=== PATIENT | male | born 1960 | race African-American/Black ===

== ENCOUNTER 2016-09-17 10:18 | Inpatient (IN) ==
[2016-09-18] MEDS ORDERED: MYLICON PO PRN (06:58)
[2016-09-18] MEDS ORDERED: ZOFRAN IV PRN (08:07)
[2016-09-18] MEDS ORDERED: COMPAZINE IV PRN (08:07)
[2016-09-18] MEDS ORDERED: MIRALAX PO PRN (08:08)
[2016-09-18] MEDS ORDERED: TYLENOL PO PRN (08:24)
[2016-09-18 09:06] LABS: AGAP 12; BUN 20 mg/dL (8-22); CALCIUM 8.9 mg/dL (8.8-10.2); CHLORIDE 99 mmol/L (98-107); COSMO 278; MAGNESIUM 1.7 mg/dL (1.5-2.7); POTASSIUM 3.9 mmol/L (3.5-5.1); SODIUM 136 mmol/L (136-145); TCO2 25 mmol/L (25-35)
[2016-09-18] MEDS ORDERED: PATIENT'S OWN MED INJ ONE (09:45)
[2016-09-18] MEDS ORDERED: IN NS INJ ONE (10:00)
--- NOTE | 2016-09-18 10:15 | PROGRESS NOTE ---
DATE: 09/18/2016 SUBJECTIVE: Mr. Kim reports that overall he is stable today. He continues to have a right- sided frontal headache. This been present for several weeks now. LABS: Currently pending. OBJECTIVE: Vital Signs: Temperature 98.6 degrees, heart rate 86, respirations 18, blood pressure 153/72, O2 saturations 95% on room air. CV: On physical exam, S1, S2 heard. No murmurs, gallops, rubs appreciated. Respiratory: Chest is clear to auscultation bilaterally. Normal respiratory effort. Gastrointestinal: Abdomen is soft. He has some mild right upper quadrant tenderness that is overall stable. Positive bowel sounds. Extremities: Patient has some trace bilateral extremity edema. Neurologic: Patient is alert and oriented. He is reporting that right-sided headache as well, some decrease in vision and auditory acuity on the right side. He reports that these symptoms are not new. ASSESSMENT AND PLAN: 1. Acute promyelocytic leukemia. Patient is admitted at this time in order to receive chemotherapy. He is due for his next round of arsenic later today. He will be monitored closely for toxicities. 2. Right-sided headache. The patient has previously had a brain MRI, 09/10/2016 , which was negative for any masses or any acute findings. The patient reports headaches overall stable. We will continue to provide pain medication as needed. Patient currently has Tylenol. 3. Nausea. Patient reports that he has nausea specifically after he receives treatment. He has been using oral antiemetics which have been effective. We will go ahead and add in Zofran and Compazine intravenous as needed. 4. Abdominal gas with some constipation. Patient will have simethicone to use as needed. We will also provide MiraLAX as needed. 5. Diabetes. Patient needs to continue home medications. 6. Hypertension. Patient will need to continue all home medications. Dictated by CHIVO López for Nicole Nicolas MD cc: MD Jesse Lee MD I have seen and examined the patient and agree with the above A/P. Nicole Nicolas MD. [facility]
[2016-09-18] MEDS ORDERED: NOVOLOG MIX 70/30 SUBQ SCH (11:00)
[2016-09-18] MEDS: NOVOLOG MIX 70/30 SUBQ SCH ×2 (11:38→18:38)
[2016-09-18] MEDS ORDERED: INSULIN PEN NEEDLES ONE (13:23)
[2016-09-19 07:20] LABS: AGAP 15; BUN 22 mg/dL (8-22); CALCIUM 8.7 mg/dL (8.8-10.2); CHLORIDE 100 mmol/L (98-107); COSMO 279; MAGNESIUM 1.9 mg/dL (1.5-2.7); POTASSIUM 3.6 mmol/L (3.5-5.1); SODIUM 138 mmol/L (136-145); TCO2 23 mmol/L (25-35)
[2016-09-19] MEDS ORDERED: IMODIUM PO ONE (07:28)
[2016-09-19] MEDS ORDERED: IMODIUM PO PRN (07:29)
--- NOTE | 2016-09-19 08:00 | PROGRESS NOTE ---
DATE: 09/19/2016 CHIEF COMPLAINT: Diarrhea. HISTORY OF PRESENT ILLNESS: Mr. Kim developed diarrhea overnight with urgency and frequency. He denies any bleeding, fevers, or chills. He had some abdominal cramping that has stopped now. He would still like to go home today when his chemotherapy completes if possible. PHYSICAL EXAMINATION: Vital Signs: Temperature is 98.5 degrees, pulse 92, blood pressure 168/61, O2 saturation 100% on room air, respiratory rate 18. General. He is a well- developed, well- nourished, man in no acute distress. HEENT: Eyes, sclerae are anicteric. Cardiovascular: Regular rate and rhythm. Normal S1, S2. No murmurs, rubs, or gallops. GI: Abdomen is soft, nontender, nondistended with normoactive bowel sounds. Extremities: No clubbing, cyanosis, or edema. Neurologic: He is alert orient x3. No focal deficits. LABORATORY DATA: Creatinine is 1.3. Magnesium is 1.9. ASSESSMENT AND PLAN: 1. Acute promyelocytic leukemia: He will proceed with his last cycle of arsenic today and then will be discharged home for outpatient followup. He will call the clinic if he has questions or concerns in the interim. 2. Diarrhea, new problem: I will start him on some Imodium at this time. Likely treatment induced. Reassess at return visit. cc: MD Jesse Lee MD I have seen and examined the patient and agree with the above A/P. Nicole FUENTES
[2016-09-19] MEDS ORDERED: PATIENT'S OWN MED INJ ONE (09:30)
[2016-09-19] MEDS ORDERED: IN NS INJ ONE (10:00)
[2016-09-19 13:24] VITALS: BP 143/64
== END 2016-09-19 13:54 | disposition home or self-care (01) ==
LOC: DIRADM 10:18 → 3N 17:42
PROVIDERS: ADMIT Internal Medicine Hematology & Oncology; ATTEND Internal Medicine Hematology & Oncology

== ENCOUNTER 2016-10-15 10:38 | Inpatient (IN) ==
[2016-10-15] MEDS ORDERED: ATIVAN IV ONE (11:15)
[2016-10-15] MEDS ORDERED: NON-FORMULARY MED 1 EACH in NS 250 ML IV ONE (11:30)
[2016-10-15] MEDS ORDERED: ZOFRAN 16 MG in NS 50 ML IV ONE (11:30)
[2016-10-15] MEDS ORDERED: PEPCID ONE (11:31)
[2016-10-15] MEDS ORDERED: SODIUM CHLORIDE 0.9% 10 ML ONE ×2 (11:32)
[2016-10-15 11:40] LABS: AGAP 10; ALBUMIN 2.9 g/dL (3.5-5.0); ALKALINE PHOSPHATASE 236 U/L (32-122); BUN 19 mg/dL (8-22); CALCIUM 7.7 mg/dL (8.8-10.2); CHLORIDE 104 mmol/L (98-107); COSMO 288; GOT 31 U/L (10-34); GPT 36 U/L (10-44); POTASSIUM 3.4 mmol/L (3.5-5.1); SODIUM 140 mmol/L (136-145); TCO2 26 mmol/L (25-35); TOTAL BILIRUBIN 0.66 mg/dL (0.20-1.00); TOTAL PROTEIN 6.1 g/dL (6.3-8.3)
[2016-10-15 11:43] LABS: BASO% 0.1 % (0.0-0.8); EOS# 0.13 X1000 (0.0-0.7); EOS% 1.8 % (0.0-10.0); HEMATOCRIT 28.8 % (42.0-52.0); HEMOGLOBIN 9.8 g/dL (14.0-18.0); IMM GRAN# 0.18 X1000 (0.0-0.04); IMM GRAN% 2.5 % (0.0-0.5); LYMPH# 0.15 X1000 (1.2-3.4); LYMPH% 2.1 % (20.5-51.1); MANUAL DIFF NEEDED? YES; MCH 30.4 PG (27-31); MCV 89.4 FL (81-99); MONO# 0.22 X1000 (0.11-0.59); NEUT% 90.5 % (42.2-75.2); PLT 129 X1000 (130-400); RBC 3.22 XMIL (4.7-6.1)
[2016-10-15 12:20] LABS: BANDS 2 % (0-1); LYMPHS 4 % (21-51)
[2016-10-15] MEDS ORDERED: COLACE PO PRN (16:22)
[2016-10-15] MEDS ORDERED: ATIVAN PO SCH (18:30)
[2016-10-15] MEDS ORDERED: PHENERGAN SCH (18:30)
[2016-10-15] MEDS: ATIVAN PO SCH (18:38)
[2016-10-15 21:00] LABS: URINE SOURCE CLEAN CATCH
[2016-10-15 21:04] LABS: BILIRUBIN URINE SMALL (NEGATIVE); BLOOD URINE MODERATE (NEGATIVE); COLOR YELLOW; GLUCOSE URINE TRACE mg/dL (NEGATIVE); LEUKOCYTES URINE NEGATIVE (NEGATIVE); NITRITE URINE NEGATIVE (NEGATIVE); PROTEIN URINE 600 mg/dL (NEGATIVE); TURBIDITY URINE CLEAR (CLEAR); UROBILINOGEN URINE NORMAL (NORMAL)
[2016-10-15 21:06] LABS: URINE MICRO REVIEW NEEDED? YES
[2016-10-15 21:19] LABS: URINE RBC <10 /HPF (<10); URINE WBC <10 /HPF (<10)
[2016-10-15 21:20] LABS: UR EPITHELIAL CELLS <10 /HPF (<10); URINE BACTERIA 2+ /HPF; URINE CASTS NONE SEEN; URINE CRYSTALS NONE SEEN; URINE CULTURE NEEDED? YES; URINE SMALL ROUND CELLS NONE SEEN
[2016-10-15 21:41] LABS: EOS# 0.07 X1000 (0.0-0.7); EOS% 0.8 % (0.0-10.0); HEMATOCRIT 26.4 % (42.0-52.0); HEMOGLOBIN 8.9 g/dL (14.0-18.0); IMM GRAN# 0.14 X1000 (0.0-0.04); IMM GRAN% 1.6 % (0.0-0.5); LYMPH# 0.17 X1000 (1.2-3.4); MANUAL DIFF NEEDED? NO; MCH 30.4 PG (27-31); MCHC 33.7 g/dL (33-37); MCV 90.1 FL (81-99); MONO# 0.23 X1000 (0.11-0.59); MONO% 2.7 % (1.7-9.3); MPV 11.1 FL (7.4-10.4); NEUT% 92.9 % (42.2-75.2); PLT 153 X1000 (130-400); RBC 2.93 XMIL (4.7-6.1)
[2016-10-15] MEDS: PRILOSEC PO SCH (22:38)
[2016-10-15] MEDS: TYLENOL PO PRN (22:38)
[2016-10-15] MEDS: PATIENT'S OWN MED PO SCH (23:43)
[2016-10-16] MEDS: PATIENT'S OWN MED TOP SCH ×2 (06:03→12:46)
[2016-10-16] MEDS: ATIVAN PO SCH ×2 (06:46→17:39)
[2016-10-16] MEDS ORDERED: INSULIN ASPART 100 UNIT SQ SCH (07:00)
[2016-10-16 07:08] LABS: EOS# 0.23 X1000 (0.0-0.7); EOS% 2.9 % (0.0-10.0); HEMATOCRIT 23.9 % (42.0-52.0); HEMOGLOBIN 7.9 g/dL (14.0-18.0); IMM GRAN# 0.09 X1000 (0.0-0.04); IMM GRAN% 1.2 % (0.0-0.5); LYMPH# 0.21 X1000 (1.2-3.4); LYMPH% 2.7 % (20.5-51.1); MANUAL DIFF NEEDED? YES; MCH 30.3 PG (27-31); MCHC 33.1 g/dL (33-37); MCV 91.6 FL (81-99); MONO# 0.39 X1000 (0.11-0.59); MPV 11.3 FL (7.4-10.4); NEUT% 88.2 % (42.2-75.2); PLT 156 X1000 (130-400); RBC 2.61 XMIL (4.7-6.1)
[2016-10-16 07:26] LABS: AGAP 14; ALBUMIN 2.6 g/dL (3.5-5.0); ALKALINE PHOSPHATASE 200 U/L (32-122); BANDS 4 % (0-1); BUN 21 mg/dL (8-22); CALCIUM 7.6 mg/dL (8.8-10.2); CHLORIDE 105 mmol/L (98-107); COSMO 288; GOT 25 U/L (10-34); GPT 30 U/L (10-44); LYMPHS 6 % (21-51); MONO 12 % (1-9); POTASSIUM 3.3 mmol/L (3.5-5.1); SODIUM 142 mmol/L (136-145); TCO2 23 mmol/L (25-35); TOTAL PROTEIN 5.8 g/dL (6.3-8.3)
[2016-10-16] MEDS: TYLENOL PO PRN ×2 (08:32→20:30)
[2016-10-16] MEDS: PRILOSEC PO SCH (08:33)
[2016-10-16] MEDS: LASIX PO SCH (08:33)
[2016-10-16] MEDS: MARINOL PO SCH (08:33)
[2016-10-16] MEDS: PATIENT'S OWN MED PO SCH ×2 (08:43→20:30)
[2016-10-16] MEDS: SODIUM CHLORIDE 0.9% INJ SCH (12:45)
[2016-10-16] MEDS: LEVAQUIN 500 MG/D5W 500 MG/100 ML IVPB IV SCH (12:45)
[2016-10-16] MEDS: PROTONIX IV SCH (12:45)
[2016-10-16] MEDS: DILAUDID IV PRN ×2 (12:45→20:30)
[2016-10-16] MEDS ORDERED: VANCOMYCIN IV PER PHARMACY MISC SCH (13:45)
[2016-10-16] MEDS ORDERED: VANCOMYCIN 2.5 GM in NS 500 ML IV ONE (15:00)
[2016-10-17] MEDS: DILAUDID IV PRN ×2 (00:56→06:15)
[2016-10-17] MEDS: PATIENT'S OWN MED TOP SCH ×2 (00:56→12:29)
[2016-10-17] MEDS: ATIVAN PO SCH ×3 (06:14→17:49)
[2016-10-17] MEDS: TYLENOL PO PRN ×2 (06:14→09:39)
[2016-10-17 06:29] LABS: MANUAL DIFF NEEDED? NO
[2016-10-17 06:46] LABS: EOS# 0.19 X1000 (0.0-0.7); EOS% 3.9 % (0.0-10.0); HEMATOCRIT 23.5 % (42.0-52.0); HEMOGLOBIN 7.6 g/dL (14.0-18.0); IMM GRAN# 0.06 X1000 (0.0-0.04); IMM GRAN% 1.2 % (0.0-0.5); LYMPH% 4.1 % (20.5-51.1); MCH 29.8 PG (27-31); MCHC 32.3 g/dL (33-37); MCV 92.2 FL (81-99); MONO# 0.36 X1000 (0.11-0.59); MONO% 7.4 % (1.7-9.3); MPV 10.9 FL (7.4-10.4); NEUT% 83.4 % (42.2-75.2); PLT 201 X1000 (130-400); RBC 2.55 XMIL (4.7-6.1)
[2016-10-17 06:49] LABS: ALBUMIN 2.6 g/dL (3.5-5.0); CALCIUM 7.8 mg/dL (8.8-10.2); POTASSIUM 3.5 mmol/L (3.5-5.1); TOTAL BILIRUBIN 1.13 mg/dL (0.20-1.00); TOTAL PROTEIN 5.7 g/dL (6.3-8.3)
[2016-10-17 08:48] LABS: MANUAL DIFF NEEDED? NO
[2016-10-17 08:49] LABS: BASO% 0.2 % (0.0-0.8); EOS# 0.14 X1000 (0.0-0.7); HEMATOCRIT 23.7 % (42.0-52.0); HEMOGLOBIN 7.8 g/dL (14.0-18.0); IMM GRAN# 0.11 X1000 (0.0-0.04); IMM GRAN% 2.4 % (0.0-0.5); LYMPH# 0.23 X1000 (1.2-3.4); MCH 30.4 PG (27-31); MCHC 32.9 g/dL (33-37); MCV 92.2 FL (81-99); MONO% 6.5 % (1.7-9.3); NEUT% 82.9 % (42.2-75.2); PLT 198 X1000 (130-400); RBC 2.57 XMIL (4.7-6.1)
[2016-10-17 09:01] LABS: ALBUMIN 2.6 g/dL (3.5-5.0); CALCIUM 7.8 mg/dL (8.8-10.2); POTASSIUM 3.5 mmol/L (3.5-5.1); TOTAL BILIRUBIN 1.11 mg/dL (0.20-1.00); TOTAL PROTEIN 5.9 g/dL (6.3-8.3)
[2016-10-17] MEDS: NS 1,000 ML IV SCH (09:23)
[2016-10-17] MEDS: LASIX PO SCH (09:23)
[2016-10-17] MEDS: LOVENOX SUBQ SCH (09:23)
[2016-10-17] MEDS: MARINOL PO SCH (09:23)
[2016-10-17] MEDS: PATIENT'S OWN MED PO SCH (09:24)
[2016-10-17] MEDS ORDERED: LASIX IV ONE (09:27)
[2016-10-17 09:35] LABS: ALLEN TEST YES; BE -0.8 mmoll (-3.0-3.0); BLOOD TYPE ARTERIAL; DRAW SITE R RADIAL; METHB 1.4 % (0.0-1.5); MODALITY CANNULA; O2(CT) 10.7 mL/dL (15.0-23.0); PCO2(98.6) 34 mmHg (35-45); PO2(98.6) 62 mmHg (60-100); SAMPLE BLOOD; SAO2 95.6 % (95.0-100.0); THB 8.2 g/dL (11.5-17.4); pH(98.6) 7.44 (7.35-7.45)
[2016-10-17] MEDS: LEVAQUIN 500 MG/D5W 500 MG/100 ML IVPB IV SCH ×2 (10:33→10:42)
[2016-10-17] MEDS: SODIUM CHLORIDE 0.9% INJ SCH (12:28)
[2016-10-17] MEDS: MAXIPIME 1 GM in NS 50 ML IV SCH (12:28)
[2016-10-17] MEDS: PROTONIX IV SCH (12:28)
[2016-10-17] MEDS ORDERED: COLACE PO PRN (13:13)
[2016-10-17] MEDS: CUBICIN 600 MG in NS 100 ML IV SCH (13:19)
[2016-10-17] MEDS: ZOFRAN IV PRN (13:24)
[2016-10-17 13:56] LABS: URINE CULTURE NEEDED? NO; URINE MICRO REVIEW NEEDED? NO; URINE SOURCE CATH
[2016-10-17 14:02] LABS: BILIRUBIN URINE NEGATIVE (NEGATIVE); BLOOD URINE SMALL (NEGATIVE); COLOR YELLOW; GLUCOSE URINE NEGATIVE (NEGATIVE); LEUKOCYTES URINE NEGATIVE (NEGATIVE); NITRITE URINE NEGATIVE (NEGATIVE); PROTEIN URINE 300 mg/dL (NEGATIVE); SP GRAVITY URINE 1.013; TURBIDITY URINE HAZY (CLEAR); UROBILINOGEN URINE NORMAL (NORMAL)
[2016-10-17 14:03] LABS: UR EPITHELIAL CELLS <10 /HPF (<10); URINE BACTERIA NEGATIVE /HPF; URINE WBC <10 /HPF (<10)
[2016-10-17 14:14] LABS: UR CREAT RANDOM 120.8 mg/dL (14-26)
[2016-10-17] MEDS ORDERED: VANCOMYCIN 2,000 MG in NS 500 ML IV SCH (15:00)
[2016-10-17] MEDS: PHENERGAN IV PRN (16:34)
[2016-10-17] MEDS: SODIUM CHLORIDE 0.9% INJ PRN (16:34)
[2016-10-17] MEDS ORDERED: COLACE PO SCH (21:00)
[2016-10-17] MEDS ORDERED: ATIVAN IV PRN (21:10)
[2016-10-17] MEDS: CULTURELLE PO SCH (22:22)
[2016-10-17] MEDS: LASIX IV SCH (22:22)
[2016-10-17] MEDS: ZOFRAN IV SCH (22:23)
[2016-10-17] MEDS: [UNRECOGNIZED DRUG - OTHER] IV SCH (22:24)
[2016-10-17] MEDS: DIFLUCAN IV SCH (22:24)
[2016-10-17] MEDS: COLACE PO SCH (22:25)
[2016-10-18] MEDS: SODIUM CHLORIDE 0.9% INJ SCH ×3 (00:59→21:10)
[2016-10-18] MEDS: PROTONIX IV SCH ×2 (00:59→12:28)
[2016-10-18] MEDS: PATIENT'S OWN MED TOP SCH ×2 (01:05→12:29)
[2016-10-18] MEDS: ATIVAN PO SCH ×2 (04:57→17:18)
[2016-10-18] MEDS: NS 1,000 ML IV SCH ×4 (04:57→17:18)
[2016-10-18 05:04] LABS: ALLEN TEST YES; BE -3.2 mmoll (-3.0-3.0); BLOOD TYPE ARTERIAL; DRAW SITE R RADIAL; METHB 0.9 % (0.0-1.5); O2(CT) 11.2 mL/dL (15.0-23.0); PCO2(98.6) 32 mmHg (35-45); PO2(98.6) 63 mmHg (60-100); SAMPLE BLOOD; SAO2 96.3 % (95.0-100.0); THB 8.5 g/dL (11.5-17.4); pH(98.6) 7.42 (7.35-7.45)
[2016-10-18 05:05] LABS: MANUAL DIFF NEEDED? NO
[2016-10-18 05:05] LABS: MODALITY CANNULA
[2016-10-18 05:10] LABS: EOS# 0.22 X1000 (0.0-0.7); EOS% 7.9 % (0.0-10.0); HEMATOCRIT 24.8 % (42.0-52.0); HEMOGLOBIN 8.2 g/dL (14.0-18.0); IMM GRAN# 0.09 X1000 (0.0-0.04); IMM GRAN% 3.2 % (0.0-0.5); LYMPH# 0.21 X1000 (1.2-3.4); LYMPH% 7.5 % (20.5-51.1); MCH 30.1 PG (27-31); MCHC 33.1 g/dL (33-37); MCV 91.2 FL (81-99); MONO# 0.37 X1000 (0.11-0.59); MONO% 13.3 % (1.7-9.3); MPV 10.9 FL (7.4-10.4); NEUT% 68.1 % (42.2-75.2); PLT 237 X1000 (130-400); RBC 2.72 XMIL (4.7-6.1)
[2016-10-18 05:23] LABS: ALBUMIN 2.6 g/dL (3.5-5.0); CALCIUM 7.8 mg/dL (8.8-10.2); POTASSIUM 3.4 mmol/L (3.5-5.1); TOTAL BILIRUBIN 1.04 mg/dL (0.20-1.00); TOTAL PROTEIN 5.2 g/dL (6.3-8.3)
[2016-10-18 08:51] LABS: MANUAL DIFF NEEDED? NO
[2016-10-18] MEDS ORDERED: NS 500 ML IV ONE (09:00)
[2016-10-18 09:03] LABS: EOS# 0.04 X1000 (0.0-0.7); EOS% 1.9 % (0.0-10.0); HEMATOCRIT 24.8 % (42.0-52.0); HEMOGLOBIN 8.1 g/dL (14.0-18.0); IMM GRAN% 4.7 % (0.0-0.5); LYMPH% 9.5 % (20.5-51.1); MCH 29.7 PG (27-31); MCHC 32.7 g/dL (33-37); MCV 90.8 FL (81-99); MONO# 0.37 X1000 (0.11-0.59); MONO% 17.5 % (1.7-9.3); MPV 11.1 FL (7.4-10.4); NEUT% 66.4 % (42.2-75.2); PLT 248 X1000 (130-400); RBC 2.73 XMIL (4.7-6.1)
[2016-10-18 09:33] LABS: ALBUMIN 2.5 g/dL (3.5-5.0); CALCIUM 7.8 mg/dL (8.8-10.2); POTASSIUM 3.2 mmol/L (3.5-5.1); TOTAL BILIRUBIN 0.88 mg/dL (0.20-1.00); TOTAL PROTEIN 5.7 g/dL (6.3-8.3)
[2016-10-18] MEDS: LOVENOX SUBQ SCH (09:50)
[2016-10-18] MEDS: MARINOL PO SCH (09:50)
[2016-10-18] MEDS: COLACE PO SCH ×3 (09:50→21:13)
[2016-10-18] MEDS: CULTURELLE PO SCH ×2 (09:50→21:10)
[2016-10-18] MEDS: MAXIPIME 1 GM in NS 50 ML IV SCH (09:52)
[2016-10-18] MEDS: ZOFRAN IV SCH ×2 (09:52→21:11)
[2016-10-18] MEDS: LASIX IV SCH (12:11)
[2016-10-18] MEDS: CUBICIN 600 MG in NS 100 ML IV SCH (12:28)
[2016-10-18] MEDS ORDERED: DULCOLAX PR ONE (13:14)
[2016-10-18] MEDS: DILAUDID IV PRN (14:14)
[2016-10-18] MEDS: CARAFATE LIQUID PO SCH ×3 (17:17→21:13)
[2016-10-18] MEDS: PHENERGAN IV PRN (21:10)
[2016-10-18] MEDS: DIFLUCAN IV SCH (21:11)
[2016-10-18] MEDS: [UNRECOGNIZED DRUG - OTHER] IV SCH (21:11)
[2016-10-19] MEDS: PROTONIX IV SCH ×2 (00:30→12:47)
[2016-10-19] MEDS: PATIENT'S OWN MED TOP SCH ×2 (00:30→12:52)
[2016-10-19] MEDS: NS 1,000 ML IV SCH ×3 (00:31→17:57)
[2016-10-19] MEDS: CARAFATE LIQUID PO SCH ×4 (01:36→21:24)
[2016-10-19] MEDS: ZOFRAN IV PRN (05:03)
[2016-10-19] MEDS: ATIVAN PO SCH ×2 (05:08→17:58)
[2016-10-19 05:20] LABS: EOS# 0.06 X1000 (0.0-0.7); EOS% 3.1 % (0.0-10.0); HEMATOCRIT 24.3 % (42.0-52.0); HEMOGLOBIN 8.1 g/dL (14.0-18.0); LYMPH# 0.25 X1000 (1.2-3.4); LYMPH% 12.8 % (20.5-51.1); MANUAL DIFF NEEDED? YES; MCH 30.2 PG (27-31); MCHC 33.3 g/dL (33-37); MCV 90.7 FL (81-99); MONO# 0.56 X1000 (0.11-0.59); MONO% 28.6 % (1.7-9.3); MPV 10.8 FL (7.4-10.4); NEUT% 55.5 % (42.2-75.2); PLT 280 X1000 (130-400); RBC 2.68 XMIL (4.7-6.1)
[2016-10-19 05:34] LABS: ALBUMIN 2.6 g/dL (3.5-5.0); CALCIUM 7.8 mg/dL (8.8-10.2); POTASSIUM 3.3 mmol/L (3.5-5.1); TOTAL BILIRUBIN 0.78 mg/dL (0.20-1.00); TOTAL PROTEIN 6.2 g/dL (6.3-8.3)
[2016-10-19 06:55] LABS: BANDS 4 % (0-1); LYMPHS 12 % (21-51); MONO 16 % (1-9)
[2016-10-19 06:56] LABS: POLYCHROM OCCASIONAL
[2016-10-19] MEDS: PHENERGAN IV PRN ×2 (07:35→21:32)
[2016-10-19] MEDS: COLACE PO SCH ×2 (08:21→21:24)
[2016-10-19] MEDS: MARINOL PO SCH (08:21)
[2016-10-19] MEDS: ZOFRAN IV SCH ×2 (08:21→21:24)
[2016-10-19] MEDS: LOVENOX SUBQ SCH (08:21)
[2016-10-19] MEDS: MAXIPIME 1 GM in NS 50 ML IV SCH ×2 (08:21→09:19)
[2016-10-19] MEDS: CULTURELLE PO SCH ×2 (08:22→21:24)
[2016-10-19] MEDS: CUBICIN 600 MG in NS 100 ML IV SCH (11:31)
[2016-10-19 13:40] LABS: INR 1.28; PROTIME 13.7 Seconds (9.2-11.7)
[2016-10-19] MEDS: [UNRECOGNIZED DRUG - OTHER] IV SCH (21:26)
[2016-10-19] MEDS: DIFLUCAN IV SCH (21:26)
[2016-10-20] MEDS: PROTONIX IV SCH ×2 (01:22→11:55)
[2016-10-20] MEDS: PATIENT'S OWN MED TOP SCH ×2 (01:22→11:56)
[2016-10-20] MEDS: NS 1,000 ML IV SCH ×3 (01:22→17:47)
[2016-10-20] MEDS: CARAFATE LIQUID PO SCH ×4 (01:22→20:37)
[2016-10-20] MEDS: ATIVAN PO SCH ×2 (05:44→17:47)
[2016-10-20 05:47] LABS: MAGNESIUM 1.9 mg/dL (1.5-2.7); URIC ACID 11.1 mg/dL (3.4-7.0)
[2016-10-20 08:25] LABS: ALBUMIN 2.6 g/dL (3.5-5.0); CALCIUM 7.5 mg/dL (8.8-10.2); POTASSIUM 3.5 mmol/L (3.5-5.1); TOTAL BILIRUBIN 0.59 mg/dL (0.20-1.00); TOTAL PROTEIN 5.2 g/dL (6.3-8.3)
[2016-10-20] MEDS: ZOFRAN IV SCH ×2 (08:47→20:39)
[2016-10-20] MEDS: LOVENOX SUBQ SCH (08:47)
[2016-10-20] MEDS: COLACE PO SCH ×2 (08:48→20:40)
[2016-10-20] MEDS: MARINOL PO SCH (08:48)
[2016-10-20] MEDS: CULTURELLE PO SCH ×2 (08:48→20:40)
[2016-10-20 08:59] LABS: EOS# 0.02 X1000 (0.0-0.7); EOS% 0.8 % (0.0-10.0); HEMATOCRIT 23.5 % (42.0-52.0); HEMOGLOBIN 7.7 g/dL (14.0-18.0); IMM GRAN# 0.02 X1000 (0.0-0.04); IMM GRAN% 0.8 % (0.0-0.5); LYMPH# 0.45 X1000 (1.2-3.4); LYMPH% 18.8 % (20.5-51.1); MANUAL DIFF NEEDED? YES; MCHC 32.8 g/dL (33-37); MCV 91.4 FL (81-99); MONO# 0.62 X1000 (0.11-0.59); MONO% 25.9 % (1.7-9.3); MPV 11.4 FL (7.4-10.4); NEUT% 53.7 % (42.2-75.2); PLT 322 X1000 (130-400); RBC 2.57 XMIL (4.7-6.1)
[2016-10-20 09:00] LABS: LYMPHS 18 % (21-51); MONO 14 % (1-9)
[2016-10-20] MEDS: MAXIPIME 1 GM in NS 50 ML IV SCH (09:12)
[2016-10-20] MEDS: ZYLOPRIM PO SCH ×2 (09:12→20:40)
[2016-10-20] MEDS: PHENERGAN IV PRN ×3 (09:52→22:51)
[2016-10-20] MEDS: CUBICIN 600 MG in NS 100 ML IV SCH (11:55)
[2016-10-20] MEDS: SODIUM CHLORIDE 0.9% INJ SCH (11:55)
[2016-10-20] MEDS ORDERED: DULCOLAX PR ONE (14:10)
[2016-10-20] MEDS: [UNRECOGNIZED DRUG - OTHER] IV SCH (20:40)
[2016-10-20] MEDS: DIFLUCAN IV SCH (20:40)
[2016-10-21] MEDS: PATIENT'S OWN MED TOP SCH ×3 (00:27→23:36)
[2016-10-21] MEDS: PROTONIX IV SCH ×3 (00:28→23:36)
[2016-10-21] MEDS: CARAFATE LIQUID PO SCH ×4 (01:54→19:57)
[2016-10-21] MEDS: NS 1,000 ML IV SCH ×3 (01:54→17:13)
[2016-10-21] MEDS: ZOFRAN IV PRN (02:48)
[2016-10-21] MEDS: ATIVAN PO SCH ×2 (06:10→17:11)
[2016-10-21] MEDS ORDERED: DIPRIVAN 1% ONE (10:09)
[2016-10-21] MEDS ORDERED: ZOFRAN ONE (10:16)
[2016-10-21] MEDS ORDERED: QUELICIN (DOSE) ONE (10:17)
[2016-10-21] MEDS: LOVENOX SUBQ SCH (11:47)
[2016-10-21] MEDS: ZOFRAN IV SCH ×3 (11:47→22:18)
[2016-10-21] MEDS: CUBICIN 600 MG in NS 100 ML IV SCH (11:48)
[2016-10-21] MEDS: ZYLOPRIM PO SCH ×2 (11:48→20:01)
[2016-10-21] MEDS: MARINOL PO SCH (11:48)
[2016-10-21] MEDS: CULTURELLE PO SCH ×2 (11:48→22:45)
[2016-10-21] MEDS: COLACE PO SCH ×2 (11:48→20:03)
[2016-10-21 12:01] LABS: MANUAL DIFF NEEDED? NO
[2016-10-21 12:07] LABS: BASO% 0.4 % (0.0-0.8); EOS# 0.01 X1000 (0.0-0.7); EOS% 0.2 % (0.0-10.0); HEMATOCRIT 25.1 % (42.0-52.0); HEMOGLOBIN 8.4 g/dL (14.0-18.0); IMM GRAN# 0.09 X1000 (0.0-0.04); IMM GRAN% 1.9 % (0.0-0.5); LYMPH# 0.58 X1000 (1.2-3.4); LYMPH% 12.1 % (20.5-51.1); MCH 30.3 PG (27-31); MCHC 33.5 g/dL (33-37); MCV 90.6 FL (81-99); MONO# 0.93 X1000 (0.11-0.59); MONO% 19.4 % (1.7-9.3); MPV 10.7 FL (7.4-10.4); PLT 394 X1000 (130-400); RBC 2.77 XMIL (4.7-6.1)
[2016-10-21 12:19] LABS: ALBUMIN 2.6 g/dL (3.5-5.0); CALCIUM 7.8 mg/dL (8.8-10.2); TOTAL BILIRUBIN 0.69 mg/dL (0.20-1.00); TOTAL PROTEIN 6.2 g/dL (6.3-8.3)
[2016-10-21] MEDS: MAXIPIME 1 GM in NS 50 ML IV SCH (12:50)
[2016-10-21] MEDS: DULCOLAX PR SCH (20:03)
[2016-10-21] MEDS: DIFLUCAN IV SCH (20:03)
[2016-10-21] MEDS: [UNRECOGNIZED DRUG - OTHER] IV SCH (20:03)
[2016-10-21] MEDS: MIRALAX PO SCH (20:04)
[2016-10-22] MEDS: CARAFATE LIQUID PO SCH ×4 (02:33→19:07)
[2016-10-22] MEDS: ZOFRAN IV PRN (04:50)
[2016-10-22] MEDS: ATIVAN PO SCH ×2 (05:57→17:40)
[2016-10-22] MEDS: NS 1,000 ML IV SCH (07:00)
[2016-10-22 08:54] LABS: MANUAL DIFF NEEDED? NO
[2016-10-22 08:58] LABS: BASO% 0.4 % (0.0-0.8); EOS# 0.01 X1000 (0.0-0.7); EOS% 0.2 % (0.0-10.0); HEMATOCRIT 24.7 % (42.0-52.0); HEMOGLOBIN 8.2 g/dL (14.0-18.0); IMM GRAN# 0.13 X1000 (0.0-0.04); IMM GRAN% 2.6 % (0.0-0.5); LYMPH# 0.67 X1000 (1.2-3.4); LYMPH% 13.2 % (20.5-51.1); MCH 29.9 PG (27-31); MCHC 33.2 g/dL (33-37); MCV 90.1 FL (81-99); MONO# 0.83 X1000 (0.11-0.59); MONO% 16.4 % (1.7-9.3); MPV 10.6 FL (7.4-10.4); NEUT% 67.2 % (42.2-75.2); PLT 418 X1000 (130-400); RBC 2.74 XMIL (4.7-6.1)
[2016-10-22 09:10] LABS: ALBUMIN 2.4 g/dL (3.5-5.0); CALCIUM 7.5 mg/dL (8.8-10.2); TOTAL BILIRUBIN 0.62 mg/dL (0.20-1.00); TOTAL PROTEIN 6.1 g/dL (6.3-8.3)
[2016-10-22] MEDS: COLACE PO SCH ×2 (09:21→20:44)
[2016-10-22] MEDS: ZOFRAN IV SCH ×3 (09:21→20:44)
[2016-10-22] MEDS: LOVENOX SUBQ SCH (09:21)
[2016-10-22] MEDS: MIRALAX PO SCH ×2 (09:21→20:43)
[2016-10-22] MEDS: ZYLOPRIM PO SCH ×2 (09:22→20:43)
[2016-10-22] MEDS: MAXIPIME 1 GM in NS 50 ML IV SCH (09:22)
[2016-10-22] MEDS: MARINOL PO SCH (09:22)
[2016-10-22] MEDS: CULTURELLE PO SCH ×2 (09:22→20:44)
[2016-10-22] MEDS ORDERED: PATIENT'S OWN MED SCH (11:15)
[2016-10-22] MEDS: CUBICIN 600 MG in NS 100 ML IV SCH (13:30)
[2016-10-22] MEDS: PROTONIX IV SCH (13:30)
[2016-10-22] MEDS: PATIENT'S OWN MED TOP SCH (13:30)
[2016-10-22] MEDS: PHENERGAN IV PRN (20:38)
[2016-10-22] MEDS: [UNRECOGNIZED DRUG - OTHER] IV SCH (20:44)
[2016-10-22] MEDS: DIFLUCAN IV SCH (20:44)
[2016-10-22] MEDS: DULCOLAX PR SCH (20:44)
[2016-10-23] MEDS: PROTONIX IV SCH ×3 (00:07→23:50)
[2016-10-23] MEDS: PATIENT'S OWN MED TOP SCH ×2 (00:07→16:00)
[2016-10-23] MEDS: ATIVAN PO SCH ×2 (00:15→18:36)
[2016-10-23] MEDS: CARAFATE LIQUID PO SCH ×4 (02:34→21:56)
[2016-10-23] MEDS: COLACE PO SCH ×2 (08:59→21:54)
[2016-10-23] MEDS: CULTURELLE PO SCH ×2 (08:59→21:54)
[2016-10-23] MEDS: LOVENOX SUBQ SCH (08:59)
[2016-10-23] MEDS: ZYLOPRIM PO SCH ×2 (09:00→21:54)
[2016-10-23] MEDS: ZOFRAN IV SCH ×2 (09:00→21:55)
[2016-10-23] MEDS: MARINOL PO SCH (09:00)
[2016-10-23] MEDS: MIRALAX PO SCH ×2 (09:00→21:54)
[2016-10-23] MEDS: MAXIPIME 1 GM in NS 50 ML IV SCH (09:24)
[2016-10-23 09:48] LABS: MANUAL DIFF NEEDED? NO
[2016-10-23 09:57] LABS: BASO% 0.3 % (0.0-0.8); EOS# 0.02 X1000 (0.0-0.7); EOS% 0.3 % (0.0-10.0); HEMATOCRIT 23.9 % (42.0-52.0); HEMOGLOBIN 7.9 g/dL (14.0-18.0); IMM GRAN# 0.12 X1000 (0.0-0.04); IMM GRAN% 1.9 % (0.0-0.5); LYMPH# 0.62 X1000 (1.2-3.4); LYMPH% 9.6 % (20.5-51.1); MCH 29.7 PG (27-31); MCHC 33.1 g/dL (33-37); MCV 89.8 FL (81-99); MONO# 0.82 X1000 (0.11-0.59); MONO% 12.7 % (1.7-9.3); MPV 10.5 FL (7.4-10.4); NEUT% 75.2 % (42.2-75.2); PLT 447 X1000 (130-400); RBC 2.66 XMIL (4.7-6.1)
[2016-10-23 10:12] LABS: ALBUMIN 2.4 g/dL (3.5-5.0); CALCIUM 7.9 mg/dL (8.8-10.2); POTASSIUM 2.9 mmol/L (3.5-5.1); TOTAL BILIRUBIN 0.66 mg/dL (0.20-1.00); TOTAL PROTEIN 6.3 g/dL (6.3-8.3)
[2016-10-23] MEDS ORDERED: MAGNESIUM SULFATE 2 GM/S.W.I. 2 GM/50 ML IVPB IV ONE (10:28)
[2016-10-23] MEDS ORDERED: POTASSIUM CHLORIDE 40 MEQ in 1/2 NS 250 ML IV ONE (11:30)
[2016-10-23] MEDS: SODIUM CHLORIDE 0.9% INJ SCH ×2 (11:36→23:50)
[2016-10-23] MEDS: CUBICIN 600 MG in NS 100 ML IV SCH (11:36)
[2016-10-23] MEDS ORDERED: LASIX IV ONE (16:11)
[2016-10-23] MEDS: PHENERGAN IV PRN (19:13)
[2016-10-23] MEDS: SODIUM CHLORIDE 0.9% INJ PRN (19:13)
[2016-10-23] MEDS: [UNRECOGNIZED DRUG - OTHER] IV SCH (21:56)
[2016-10-23] MEDS: DIFLUCAN IV SCH (21:56)
[2016-10-23] MEDS: DULCOLAX PR SCH (22:04)
[2016-10-24] MEDS: CARAFATE LIQUID PO SCH ×4 (03:55→20:46)
[2016-10-24] MEDS: ATIVAN PO SCH ×2 (03:55→20:47)
[2016-10-24] MEDS: PATIENT'S OWN MED TOP SCH ×2 (03:56→16:35)
[2016-10-24 05:14] LABS: MANUAL DIFF NEEDED? NO
[2016-10-24 05:28] LABS: BASO% 0.3 % (0.0-0.8); HEMATOCRIT 23.8 % (42.0-52.0); HEMOGLOBIN 7.9 g/dL (14.0-18.0); IMM GRAN# 0.13 X1000 (0.0-0.04); LYMPH# 0.67 X1000 (1.2-3.4); LYMPH% 10.5 % (20.5-51.1); MCH 29.7 PG (27-31); MCHC 33.2 g/dL (33-37); MCV 89.5 FL (81-99); MONO# 0.88 X1000 (0.11-0.59); MONO% 13.8 % (1.7-9.3); MPV 10.4 FL (7.4-10.4); NEUT% 73.4 % (42.2-75.2); PLT 440 X1000 (130-400); RBC 2.66 XMIL (4.7-6.1)
[2016-10-24 05:35] LABS: ALBUMIN 2.4 g/dL (3.5-5.0); CALCIUM 7.1 mg/dL (8.8-10.2); POTASSIUM 2.8 mmol/L (3.5-5.1); TOTAL BILIRUBIN 0.62 mg/dL (0.20-1.00); TOTAL PROTEIN 6.1 g/dL (6.3-8.3)
[2016-10-24] MEDS ORDERED: KLOR-CON PO ONE (05:38)
[2016-10-24 05:52] LABS: MAGNESIUM 1.6 mg/dL (1.5-2.7); URIC ACID 7.9 mg/dL (3.4-7.0)
[2016-10-24] MEDS: LOVENOX SUBQ SCH (08:36)
[2016-10-24] MEDS: CULTURELLE PO SCH ×2 (08:36→20:46)
[2016-10-24] MEDS: ZOFRAN IV SCH ×2 (08:36→20:46)
[2016-10-24] MEDS: COLACE PO SCH ×2 (08:36→20:46)
[2016-10-24] MEDS: MARINOL PO SCH (08:36)
[2016-10-24] MEDS: ZYLOPRIM PO SCH ×2 (08:36→20:46)
[2016-10-24] MEDS: MAXIPIME 1 GM in NS 50 ML IV SCH ×2 (08:37→11:55)
[2016-10-24] MEDS: MIRALAX PO SCH ×2 (08:37→20:46)
[2016-10-24] MEDS: SODIUM CHLORIDE 0.9% INJ SCH ×2 (12:30→20:46)
[2016-10-24] MEDS: PROTONIX IV SCH ×2 (12:31→20:46)
[2016-10-24] MEDS: CUBICIN 600 MG in NS 100 ML IV SCH (12:31)
[2016-10-24] MEDS: DIFLUCAN IV SCH (20:45)
[2016-10-24] MEDS: [UNRECOGNIZED DRUG - OTHER] IV SCH (20:45)
[2016-10-24] MEDS: DULCOLAX PR SCH (20:53)
[2016-10-25] MEDS: CARAFATE LIQUID PO SCH ×4 (02:46→20:22)
[2016-10-25] MEDS: PATIENT'S OWN MED TOP SCH ×2 (03:22→16:11)
[2016-10-25 05:14] LABS: MANUAL DIFF NEEDED? NO
[2016-10-25 05:40] LABS: BASO% 0.1 % (0.0-0.8); EOS# 0.03 X1000 (0.0-0.7); EOS% 0.4 % (0.0-10.0); HEMATOCRIT 25.3 % (42.0-52.0); HEMOGLOBIN 8.4 g/dL (14.0-18.0); IMM GRAN# 0.12 X1000 (0.0-0.04); IMM GRAN% 1.5 % (0.0-0.5); LYMPH# 0.77 X1000 (1.2-3.4); LYMPH% 9.9 % (20.5-51.1); MCH 29.6 PG (27-31); MCHC 33.2 g/dL (33-37); MCV 89.1 FL (81-99); MONO# 1.25 X1000 (0.11-0.59); MPV 10.5 FL (7.4-10.4); NEUT% 72.1 % (42.2-75.2); PLT 462 X1000 (130-400); RBC 2.84 XMIL (4.7-6.1)
[2016-10-25 05:45] LABS: ALBUMIN 2.7 g/dL (3.5-5.0); CALCIUM 7.9 mg/dL (8.8-10.2); POTASSIUM 2.7 mmol/L (3.5-5.1); TOTAL BILIRUBIN 0.65 mg/dL (0.20-1.00); TOTAL PROTEIN 6.5 g/dL (6.3-8.3)
[2016-10-25] MEDS ORDERED: KLOR-CON PO ONE (05:55)
[2016-10-25] MEDS ORDERED: MAGNESIUM SULFATE 2 GM/S.W.I. 2 GM/50 ML IVPB IV ONE (05:56)
[2016-10-25] MEDS ORDERED: NS IV ONE (06:00)
[2016-10-25] MEDS ORDERED: POTASSIUM ACETATE IV ONE (06:00)
[2016-10-25] MEDS: MIRALAX PO SCH ×2 (08:45→20:22)
[2016-10-25] MEDS: ZOFRAN IV SCH (08:46)
[2016-10-25] MEDS: COLACE PO SCH ×2 (08:46→20:22)
[2016-10-25] MEDS: PROTONIX IV SCH (08:46)
[2016-10-25] MEDS: ZYLOPRIM PO SCH ×2 (08:46→20:22)
[2016-10-25] MEDS: CULTURELLE PO SCH ×2 (08:46→20:22)
[2016-10-25] MEDS: LOVENOX SUBQ SCH (08:47)
[2016-10-25] MEDS: MARINOL PO SCH (08:47)
[2016-10-25] MEDS: ATIVAN PO SCH ×2 (08:52→20:32)
[2016-10-25] MEDS: MAXIPIME 1 GM in NS 50 ML IV SCH (10:00)
[2016-10-25] MEDS ORDERED: ROCEPHIN 1 GM in NS 50 ML IV SCH (11:15)
[2016-10-25] MEDS: KEFZOL 2 GM/D5W 2 GM/50 ML IVPB IV SCH (15:29)
[2016-10-25] MEDS: ZOFRAN PO PRN (20:22)
[2016-10-25] MEDS: DULCOLAX PR SCH (20:35)
[2016-10-26] MEDS: CARAFATE LIQUID PO SCH ×4 (02:05→20:40)
[2016-10-26] MEDS: KEFZOL 2 GM/D5W 2 GM/50 ML IVPB IV SCH ×3 (02:05→17:18)
[2016-10-26 05:30] LABS: MANUAL DIFF NEEDED? NO
[2016-10-26 05:53] LABS: ALBUMIN 2.3 g/dL (3.5-5.0); CALCIUM 7.7 mg/dL (8.8-10.2); TOTAL BILIRUBIN 0.52 mg/dL (0.20-1.00); TOTAL PROTEIN 6.1 g/dL (6.3-8.3)
[2016-10-26 06:09] LABS: BASO% 0.2 % (0.0-0.8); EOS# 0.01 X1000 (0.0-0.7); EOS% 0.1 % (0.0-10.0); IMM GRAN# 0.11 X1000 (0.0-0.04); IMM GRAN% 1.3 % (0.0-0.5); LYMPH# 0.88 X1000 (1.2-3.4); LYMPH% 10.7 % (20.5-51.1); MCH 30.1 PG (27-31); MCHC 33.3 g/dL (33-37); MCV 90.2 FL (81-99); MONO# 1.36 X1000 (0.11-0.59); MONO% 16.5 % (1.7-9.3); MPV 10.6 FL (7.4-10.4); NEUT% 71.2 % (42.2-75.2); PLT 409 X1000 (130-400); RBC 2.66 XMIL (4.7-6.1)
[2016-10-26] MEDS ORDERED: KLOR-CON PO ONE (06:15)
[2016-10-26] MEDS: PATIENT'S OWN MED TOP SCH ×2 (06:33→16:38)
[2016-10-26] MEDS: PRILOSEC PO SCH (06:38)
[2016-10-26] MEDS ORDERED: NS IV ONE (07:00)
[2016-10-26] MEDS ORDERED: POTASSIUM ACETATE IV ONE (07:00)
[2016-10-26] MEDS: PHENERGAN PO PRN (08:56)
[2016-10-26] MEDS: ATIVAN PO SCH ×2 (09:54→20:40)
[2016-10-26] MEDS: COLACE PO SCH ×2 (09:54→20:46)
[2016-10-26] MEDS: CULTURELLE PO SCH ×2 (09:54→20:40)
[2016-10-26] MEDS: MARINOL PO SCH (09:54)
[2016-10-26] MEDS: ZYLOPRIM PO SCH ×2 (09:54→20:40)
[2016-10-26] MEDS: MIRALAX PO SCH ×2 (09:54→20:40)
[2016-10-26] MEDS: LOVENOX SUBQ SCH (09:54)
[2016-10-26] MEDS: NORVASC PO SCH ×2 (11:14→20:40)
[2016-10-26] MEDS: ZOFRAN PO PRN (20:40)
[2016-10-26] MEDS: DULCOLAX PR SCH (20:45)
[2016-10-27] MEDS: KEFZOL 2 GM/D5W 2 GM/50 ML IVPB IV SCH ×3 (02:41→17:43)
[2016-10-27] MEDS: CARAFATE LIQUID PO SCH ×6 (02:41→21:05)
[2016-10-27] MEDS: PATIENT'S OWN MED TOP SCH ×2 (05:02→16:19)
[2016-10-27 05:40] LABS: MANUAL DIFF NEEDED? NO
[2016-10-27 06:06] LABS: ALBUMIN 2.6 g/dL (3.5-5.0); CALCIUM 7.4 mg/dL (8.8-10.2); POTASSIUM 3.3 mmol/L (3.5-5.1); TOTAL BILIRUBIN 0.48 mg/dL (0.20-1.00); TOTAL PROTEIN 6.5 g/dL (6.3-8.3)
[2016-10-27] MEDS: ZOFRAN PO PRN (06:08)
[2016-10-27 06:13] LABS: BASO% 0.4 % (0.0-0.8); EOS# 0.02 X1000 (0.0-0.7); EOS% 0.3 % (0.0-10.0); HEMATOCRIT 26.3 % (42.0-52.0); HEMOGLOBIN 8.7 g/dL (14.0-18.0); IMM GRAN# 0.08 X1000 (0.0-0.04); LYMPH# 0.78 X1000 (1.2-3.4); LYMPH% 9.8 % (20.5-51.1); MCH 29.8 PG (27-31); MCHC 33.1 g/dL (33-37); MCV 90.1 FL (81-99); MONO# 1.43 X1000 (0.11-0.59); MONO% 17.9 % (1.7-9.3); MPV 10.7 FL (7.4-10.4); NEUT% 70.6 % (42.2-75.2); PLT 390 X1000 (130-400); RBC 2.92 XMIL (4.7-6.1)
[2016-10-27] MEDS ORDERED: XYLOCAINE 1% ONE (06:25)
[2016-10-27] MEDS ORDERED: SENSORCAINE 0.5%-EPI 1:200,000 ONE (06:25)
[2016-10-27] MEDS ORDERED: DIPRIVAN 1% ONE (06:29)
[2016-10-27] MEDS: MARINOL PO SCH ×2 (06:42→11:39)
[2016-10-27] MEDS: PRILOSEC PO SCH (06:43)
[2016-10-27] MEDS ORDERED: QUELICIN (DOSE) ONE (07:10)
[2016-10-27] MEDS ORDERED: ZOFRAN ONE (07:19)
[2016-10-27] MEDS ORDERED: DECADRON ONE (07:19)
[2016-10-27] MEDS ORDERED: EPHEDRINE ONE (07:21)
[2016-10-27] MEDS ORDERED: KLOR-CON PO ONE (08:30)
[2016-10-27] MEDS: MIRALAX PO SCH ×2 (09:45→21:01)
[2016-10-27] MEDS: POTASSIUM CHLORIDE 20 MEQ in NS 100 ML IV SCH ×2 (09:45→11:41)
[2016-10-27] MEDS: CULTURELLE PO SCH ×2 (09:46→21:04)
[2016-10-27] MEDS: ZYLOPRIM PO SCH ×2 (09:46→21:05)
[2016-10-27] MEDS: COLACE PO SCH ×2 (09:47→21:05)
[2016-10-27] MEDS: ATIVAN PO SCH ×2 (09:47→21:05)
[2016-10-27] MEDS: NORVASC PO SCH ×2 (09:47→21:05)
[2016-10-27] MEDS: PHENERGAN PO PRN (11:38)
[2016-10-27] MEDS: HYGROTON PO SCH (11:39)
[2016-10-27] MEDS ORDERED: PHENERGAN PO PRN (12:17)
[2016-10-27] MEDS: REGLAN IV SCH ×2 (13:13→17:43)
[2016-10-27] MEDS: DULCOLAX PR SCH (23:36)
[2016-10-28] MEDS: CARAFATE LIQUID PO SCH ×4 (03:59→20:50)
[2016-10-28] MEDS: REGLAN IV SCH ×4 (04:08→22:42)
[2016-10-28] MEDS: KEFZOL 2 GM/D5W 2 GM/50 ML IVPB IV SCH ×3 (04:08→17:38)
[2016-10-28] MEDS: PATIENT'S OWN MED TOP SCH ×2 (04:50→15:09)
[2016-10-28 05:04] LABS: MANUAL DIFF NEEDED? NO
[2016-10-28 05:14] LABS: BASO% 0.1 % (0.0-0.8); HEMATOCRIT 23.1 % (42.0-52.0); HEMOGLOBIN 7.6 g/dL (14.0-18.0); IMM GRAN# 0.06 X1000 (0.0-0.04); IMM GRAN% 0.8 % (0.0-0.5); LYMPH# 1.07 X1000 (1.2-3.4); LYMPH% 15.1 % (20.5-51.1); MCH 29.8 PG (27-31); MCHC 32.9 g/dL (33-37); MCV 90.6 FL (81-99); MONO# 1.28 X1000 (0.11-0.59); MPV 10.5 FL (7.4-10.4); PLT 366 X1000 (130-400); RBC 2.55 XMIL (4.7-6.1)
[2016-10-28 05:34] LABS: ALBUMIN 2.5 g/dL (3.5-5.0); POTASSIUM 3.6 mmol/L (3.5-5.1); TOTAL BILIRUBIN 0.38 mg/dL (0.20-1.00); TOTAL PROTEIN 6.4 g/dL (6.3-8.3)
[2016-10-28] MEDS: MARINOL PO SCH ×2 (06:25→11:17)
[2016-10-28] MEDS: PRILOSEC PO SCH (06:25)
[2016-10-28] MEDS: HYGROTON PO SCH (09:09)
[2016-10-28] MEDS: ATIVAN PO SCH ×2 (09:09→20:49)
[2016-10-28] MEDS: LOVENOX SUBQ SCH (09:09)
[2016-10-28] MEDS: CULTURELLE PO SCH ×2 (09:09→20:49)
[2016-10-28] MEDS: NORVASC PO SCH ×2 (09:10→20:49)
[2016-10-28] MEDS: COLACE PO SCH ×2 (09:10→20:49)
[2016-10-28] MEDS: ZYLOPRIM PO SCH ×2 (09:10→20:49)
[2016-10-28] MEDS: MIRALAX PO SCH ×2 (09:10→20:49)
[2016-10-28] MEDS ORDERED: NS 500 ML IV SCH (14:28)
[2016-10-28] MEDS: ZOFRAN PO PRN (20:49)
[2016-10-28] MEDS: DULCOLAX PR SCH (22:26)
[2016-10-29] MEDS: KEFZOL 2 GM/D5W 2 GM/50 ML IVPB IV SCH ×3 (02:11→22:05)
[2016-10-29] MEDS: REGLAN IV SCH ×4 (02:11→20:42)
[2016-10-29] MEDS: CARAFATE LIQUID PO SCH ×4 (02:11→20:41)
[2016-10-29 05:15] LABS: MANUAL DIFF NEEDED? NO
[2016-10-29 05:29] LABS: BASO% 0.6 % (0.0-0.8); EOS# 0.04 X1000 (0.0-0.7); EOS% 0.5 % (0.0-10.0); HEMATOCRIT 27.5 % (42.0-52.0); IMM GRAN# 0.04 X1000 (0.0-0.04); IMM GRAN% 0.5 % (0.0-0.5); LYMPH# 1.23 X1000 (1.2-3.4); LYMPH% 15.2 % (20.5-51.1); MCH 29.6 PG (27-31); MCHC 32.7 g/dL (33-37); MCV 90.5 FL (81-99); MONO# 1.31 X1000 (0.11-0.59); MONO% 16.2 % (1.7-9.3); MPV 10.5 FL (7.4-10.4); PLT 362 X1000 (130-400); RBC 3.04 XMIL (4.7-6.1)
[2016-10-29] MEDS: PATIENT'S OWN MED TOP SCH ×2 (05:38→18:02)
[2016-10-29 05:59] LABS: AGAP 13; ALBUMIN 2.5 g/dL (3.5-5.0); ALKALINE PHOSPHATASE 195 U/L (32-122); BUN 12 mg/dL (8-22); CALCIUM 7.7 mg/dL (8.8-10.2); CHLORIDE 100 mmol/L (98-107); COSMO 279; GOT 18 U/L (10-34); GPT < 5 U/L (10-44); POTASSIUM 3.3 mmol/L (3.5-5.1); SODIUM 140 mmol/L (136-145); TCO2 27 mmol/L (25-35); TOTAL BILIRUBIN 0.32 mg/dL (0.20-1.00); TOTAL PROTEIN 6.6 g/dL (6.3-8.3)
[2016-10-29] MEDS: MARINOL PO SCH ×2 (06:41→14:30)
[2016-10-29] MEDS: PRILOSEC PO SCH (06:41)
[2016-10-29] MEDS: MIRALAX PO SCH ×2 (13:54→20:43)
[2016-10-29] MEDS: COLACE PO SCH ×2 (13:55→20:42)
[2016-10-29] MEDS: HYGROTON PO SCH (14:29)
[2016-10-29] MEDS: CULTURELLE PO SCH ×2 (14:30→20:42)
[2016-10-29] MEDS: ZYLOPRIM PO SCH ×2 (14:31→20:42)
[2016-10-29] MEDS: LOVENOX SUBQ SCH (14:31)
[2016-10-29] MEDS: NORVASC PO SCH ×2 (14:31→20:41)
[2016-10-29] MEDS: ATIVAN PO SCH ×2 (14:35→20:42)
[2016-10-29] MEDS: DULCOLAX PR SCH (20:43)
[2016-10-30] MEDS: CARAFATE LIQUID PO SCH ×4 (01:57→20:28)
[2016-10-30] MEDS: REGLAN IV SCH ×4 (02:00→20:28)
[2016-10-30] MEDS: PATIENT'S OWN MED TOP SCH ×2 (03:40→16:49)
[2016-10-30] MEDS: KEFZOL 2 GM/D5W 2 GM/50 ML IVPB IV SCH ×3 (05:10→21:25)
[2016-10-30] MEDS: PRILOSEC PO SCH ×2 (05:11→06:21)
[2016-10-30 05:16] LABS: MANUAL DIFF NEEDED? NO
[2016-10-30] MEDS: MARINOL PO SCH ×2 (05:20→12:27)
[2016-10-30 05:33] LABS: BASO% 0.8 % (0.0-0.8); EOS# 0.03 X1000 (0.0-0.7); EOS% 0.4 % (0.0-10.0); HEMATOCRIT 27.1 % (42.0-52.0); HEMOGLOBIN 8.9 g/dL (14.0-18.0); IMM GRAN# 0.06 X1000 (0.0-0.04); IMM GRAN% 0.8 % (0.0-0.5); LYMPH# 1.26 X1000 (1.2-3.4); LYMPH% 16.9 % (20.5-51.1); MCH 29.7 PG (27-31); MCHC 32.8 g/dL (33-37); MCV 90.3 FL (81-99); MONO# 1.27 X1000 (0.11-0.59); MPV 10.6 FL (7.4-10.4); NEUT% 64.1 % (42.2-75.2); PLT 330 X1000 (130-400)
[2016-10-30 06:23] LABS: AGAP 13; ALBUMIN 2.5 g/dL (3.5-5.0); ALKALINE PHOSPHATASE 180 U/L (32-122); BUN 11 mg/dL (8-22); CALCIUM 7.6 mg/dL (8.8-10.2); CHLORIDE 99 mmol/L (98-107); COSMO 278; GOT 16 U/L (10-34); GPT < 5 U/L (10-44); POTASSIUM 2.9 mmol/L (3.5-5.1); SODIUM 140 mmol/L (136-145); TCO2 28 mmol/L (25-35); TOTAL PROTEIN 6.6 g/dL (6.3-8.3)
[2016-10-30] MEDS: MIRALAX PO SCH ×2 (08:50→20:28)
[2016-10-30] MEDS: ZYLOPRIM PO SCH ×2 (08:51→20:28)
[2016-10-30] MEDS: NORVASC PO SCH ×2 (08:51→20:28)
[2016-10-30] MEDS: CULTURELLE PO SCH ×2 (08:51→20:28)
[2016-10-30] MEDS: COLACE PO SCH ×2 (08:51→20:28)
[2016-10-30] MEDS: LOVENOX SUBQ SCH (08:51)
[2016-10-30] MEDS: HYGROTON PO SCH (08:51)
[2016-10-30] MEDS: ATIVAN PO SCH ×2 (08:51→20:28)
[2016-10-30] MEDS: DULCOLAX PR SCH (20:28)
[2016-10-31] MEDS: CARAFATE LIQUID PO SCH ×3 (02:23→14:09)
[2016-10-31] MEDS: REGLAN IV SCH ×3 (02:23→14:09)
[2016-10-31] MEDS: PATIENT'S OWN MED TOP SCH (03:52)
[2016-10-31] MEDS: KEFZOL 2 GM/D5W 2 GM/50 ML IVPB IV SCH ×2 (05:35→14:09)
[2016-10-31] MEDS: MARINOL PO SCH ×2 (05:35→11:33)
[2016-10-31] MEDS: PRILOSEC PO SCH ×2 (05:37→06:47)
[2016-10-31 05:40] LABS: MANUAL DIFF NEEDED? NO
[2016-10-31 05:54] LABS: BASO% 1.2 % (0.0-0.8); EOS# 0.04 X1000 (0.0-0.7); EOS% 0.6 % (0.0-10.0); HEMATOCRIT 26.6 % (42.0-52.0); HEMOGLOBIN 8.6 g/dL (14.0-18.0); IMM GRAN# 0.04 X1000 (0.0-0.04); IMM GRAN% 0.6 % (0.0-0.5); LYMPH# 1.41 X1000 (1.2-3.4); LYMPH% 19.4 % (20.5-51.1); MCH 29.6 PG (27-31); MCHC 32.3 g/dL (33-37); MCV 91.4 FL (81-99); MONO# 1.08 X1000 (0.11-0.59); MONO% 14.9 % (1.7-9.3); MPV 10.4 FL (7.4-10.4); NEUT% 63.3 % (42.2-75.2); PLT 328 X1000 (130-400); RBC 2.91 XMIL (4.7-6.1)
[2016-10-31 06:05] LABS: AGAP 11; ALBUMIN 2.5 g/dL (3.5-5.0); ALKALINE PHOSPHATASE 180 U/L (32-122); BUN 11 mg/dL (8-22); CALCIUM 7.1 mg/dL (8.8-10.2); CHLORIDE 98 mmol/L (98-107); COSMO 277; GOT 15 U/L (10-34); GPT < 5 U/L (10-44); POTASSIUM 3.1 mmol/L (3.5-5.1); SODIUM 139 mmol/L (136-145); TCO2 30 mmol/L (25-35); TOTAL BILIRUBIN 0.37 mg/dL (0.20-1.00); TOTAL PROTEIN 6.4 g/dL (6.3-8.3)
[2016-10-31] MEDS: ATIVAN PO SCH (08:05)
[2016-10-31] MEDS: ZYLOPRIM PO SCH (08:05)
[2016-10-31] MEDS: COLACE PO SCH (08:05)
[2016-10-31] MEDS: MIRALAX PO SCH (08:05)
[2016-10-31] MEDS: CULTURELLE PO SCH (08:05)
[2016-10-31] MEDS: NORVASC PO SCH (08:05)
[2016-10-31] MEDS: LOVENOX SUBQ SCH (08:05)
[2016-10-31] MEDS: HYGROTON PO SCH (08:13)
[2016-10-31 11:15] VITALS: BP 148/65
== END 2016-10-31 14:53 | disposition home health service (06) ==
LOC: DIRADM 10:38 → SUATTDRO 10:38 → 3N 14:26 → 3S 10-17 09:14
PROVIDERS: ADMIT Emergency Medicine; ATTEND Internal Medicine Hematology & Oncology

== ENCOUNTER 2016-11-08 09:25 | Inpatient (IN) ==
[2016-11-08 10:25] LABS: BASO% 2.2 % (0.0-0.8); EOS# 0.07 X1000 (0.0-0.7); HEMATOCRIT 24.5 % (42.0-52.0); HEMOGLOBIN 7.9 g/dL (14.0-18.0); IMM GRAN# 0.02 X1000 (0.0-0.04); IMM GRAN% 0.3 % (0.0-0.5); LYMPH# 1.02 X1000 (1.2-3.4); LYMPH% 14.8 % (20.5-51.1); MANUAL DIFF NEEDED? YES; MCHC 32.2 g/dL (33-37); MCV 93.2 FL (81-99); MONO% 7.2 % (1.7-9.3); MPV 10.1 FL (7.4-10.4); NEUT% 74.5 % (42.2-75.2); PLT 308 X1000 (130-400); RBC 2.63 XMIL (4.7-6.1)
[2016-11-08 10:57] LABS: LYMPHS 14 % (21-51); MONO 4 % (1-9)
[2016-11-08 11:50] LABS: FLOW CYTOMETERY SOURCE BONE MARROW; LEUKEMIA LYMPHOMA BY FLOW REFERRED FOR TESTING
[2016-11-08] MEDS ORDERED: BENADRYL PO ONE (16:30)
[2016-11-08] MEDS ORDERED: TYLENOL PO ONE (16:30)
--- NOTE | 2016-11-08 18:03 | PROGRESS NOTE ---
DATE: 11/08/2016 PRESENT ILLNESS: The patient has been treated already for an oxacillin sensitive Staphylococcus aureus bacteremia which originated from his Port-A-Cath. The Port-A-Cath has been removed. The patient was admitted today for blood transfusion. His temperature is 100 degrees. He is not complaining of any fever, chills and he is not having any cough or dysuria. MEDICATIONS: Currently, the patient is on no antibiotic. PHYSICAL EXAMINATION: Vital Signs: Temperature is 100 degrees, pulse 94, respirations 20, blood pressure 148/78. General: This is a fairly healthy-appearing middle-aged male. He is in no acute distress. Neck: The patient has a left-sided internal jugular catheter in place. The site is not swollen or draining. Thorax: Patient's Port-A-Cath site where his Port-A-Cath was removed is not swollen or draining, either. Lungs: Clear to auscultation. Cardiovascular: Regular heart rate. Abdomen: Soft and nontender. LABORATORY AND X-RAY: The only lab back yet is the patient's CBC which shows a white count of 6910, hemoglobin 7.9 and platelet count 308,000. ASSESSMENT AND PLAN: The patient previously had a bacteremia and we jim blood cultures on him after we started antibiotics and they were sterile. Unfortunately now he is back in to get transfusion but his temperature is 100 degrees therefore I am going to do the following: I have requested that the left internal jugular catheter be removed and the catheter tip should be cultured. I have ordered 2 blood cultures and a chest x-ray and a urine culture. I have also ordered a chest x-ray on the patient. COMORBIDITIES: He has acute leukemia. He has an internal jugular catheter in place. Patient also is receiving chemotherapy for his leukemia. He also has diabetes mellitus and gastroesophageal reflux disease. cc: MD Jesse Bonilla MD
--- NOTE | 2016-11-08 18:07 | Diag Imaging Result Doc PS360 ---
EXAM: CHEST-2 VIEWS HISTORY: pneumonia TECHNIQUE: PA and lateral chest COMMENT: There is a left internal jugular central venous catheter which is apparently in the left innominate vein. There is increased perihilar opacity and pulmonary vascularity which was not present at the time the previous study of 10/27/2016. Some atelectatic opacities are present in the left upper lobe and both lung bases. IMPRESSION: Bronchopneumonia and/or pulmonary edema. Electronically signed by Isidoro Baltazar 11/08/2016 6:05 PM
[2016-11-08] MEDS ORDERED: NS 250 ML IV ONE (19:36)
[2016-11-09] MEDS ORDERED: NS 1,000 ML IV SCH (12:46)
[2016-11-09] MEDS ORDERED: ZOFRAN IV PRN (12:46)
[2016-11-09] MEDS ORDERED: TYLENOL PO PRN (12:46)
[2016-11-09] MEDS ORDERED: ROCEPHIN 1 GM in NS 50 ML IV ONE (13:31)
[2016-11-09] MEDS ORDERED: NS NEB INH SCH (14:00)
--- NOTE | 2016-11-09 14:14 | Diag Imaging Result Doc PS360 ---
CHEST-2 VIEWS - 11/09/2016 INDICATION: f/u on pna TECHNIQUE: COMPARISON: 11/08/2016 FINDINGS: The left central line has been removed. There is little change in the left basilar infiltrate. The right basilar infiltrate and perihilar infiltrates/edema have improved slightly. Stable cardiomegaly and pulmonary vascular congestion. There are small pleural effusions that may be minimally larger than prior. IMPRESSION: Mixed changes from prior. Overall some slight improvement. Electronically signed by Les Jean 11/09/2016 2:12 PM
[2016-11-09] MEDS: XOPENEX NEB INH SCH ×2 (15:30→23:51)
[2016-11-09] MEDS: ATROVENT NEB INH SCH ×2 (15:30→23:51)
--- NOTE | 2016-11-09 15:36 | CONSULTATION ---
DATE OF CONSULTATION: 11/09/2016 REASON FOR CONSULTATION: Medical management. CHIEF COMPLAINT: Complains of shortness of breath and wheezing. HISTORY OF PRESENT ILLNESS: Mr. Ky Kim is a 56-year-old male who has a diagnosis of leukemia was admitted yesterday to have bone marrow biopsy and 2 units of packed red blood cells transfused and also have his port be discontinued secondary to bacteremia. He did have bone marrow biopsy and also received 2 units packed red blood cells along with the port being discontinued, later in the evening he developed some wheezing and some shortness of breath which improved when he got up to a chair and received oxygen therapy. Chest x-ray obtained revealed that he has bronchopneumonia and/or pulmonary edema. Will repeat chest x-ray to reevaluate. He has been saturating anywhere from 93-99% on 3 L nasal cannula. The wheezing subsided. Dr. Robert is following for the bacteremia. Apparently he was on antibiotics and received a full course which ended on this past Tuesday. Will go ahead and add Rocephin for now , respiratory treatments and follow recommendations of Dr. Robert. It could be that he has some fluid volume overload secondary to receiving 2 packed red blood cells yesterday, he does have significant lower extremity edema 4+ but his last echocardiogram did not show any signs of congestive heart failure which was performed on 10/17/2016, his ejection fraction calculated was 69%. PAST MEDICAL HISTORY: Diabetes mellitus type 2, thrombocytopenia, anemia, leukemia, dyslipidemia that has stopped medications, hypokalemia, hypertension, also stop these medications and gastroesophageal reflux disease. SURGICAL HISTORY: Has had a right and left chest port placement, bone marrow biopsy x2 with the last being yesterday on 11/08/2016. SOCIAL HISTORY: Quit smoking in 2010 but smoked 2 packs per day for 25 years. He quit drinking in 2004, quit smoking marijuana in 2004. Lives at home with his and has 2 young adult children. FAMILY HISTORY: Sister had lung cancer, grandmother had stomach cancer. REVIEW OF SYSTEMS: Fourteen point review of systems were complete and all were negative except for those mentioned above HPI. Did complain of shortness of breath and wheezing which he states is improved, also complains of lower extremity swelling over last few months. ALLERGIES: No known drug allergies. HOME MEDICATIONS: Allopurinol 100 mg p.o. twice daily, Norvasc 5 mg p.o. twice daily, Colace 100 mg p.o. twice daily p.r.n., Lasix 40 mg p.o. daily, NovoLog insulin 25 units subcutaneously daily, Culturelle 1 capsule p.o. twice daily, Ativan 1 mg p.o. q.6 hours, omeprazole 40 mg p.o. twice daily, MiraLAX 17 g p.o. twice daily, Phenergan 25 mg topical q.6 hours and __ 50 mg p.o. twice daily. PHYSICAL EXAMINATION: Vital Signs: Temperature is 97.8 degrees, heart rate 90 , respiratory rate 17, blood pressure 151/71, O2 saturation 93% on 3 L nasal cannula. General: Mr. Ky Kim is a 56-year-old male, he is in no acute distress is able answer questions appropriately. HEENT: Atraumatic, normocephalic. Pupils equal, round, reactive to light. Extraocular movements intact. Mucous membranes are moist. Neck: Trachea midline. Cardiovascular: S1, S2. Regular rate and rhythm. No rubs, gallops, murmurs. No carotid bruits or JVD. Significant lower extremity edema 4+, difficult to palpate pulses but lower extremities were warm, he had +2 radial pulses. Pulmonary: Clear to auscultate bilateral breath sounds. No accessory muscle use or work of breathing noted. He is currently on 3 L nasal cannula. GI: Soft, nontender, round, positive bowel sounds x4. Extremities: Moves all extremities equally but 4/5 strength. Neuro: A and O x4, no sensory changes. Skin: Warm, dry, intact. LABORATORY DATA: White blood cells 6000, hemoglobin 7.9, hematocrit 24.5, platelet count 308,000, creatinine 1.4, glucose 136 and that is all the labs that were performed on , will repeat labs in the morning. IMAGING: Chest x-ray 11/08/2016 bronchopneumonia and/or pulmonary edema. ASSESSMENT AND PLAN: 1. Recent bacteremia with oxacillin sensitive Staph aureus that was positive back on 10/19/2016. The port has been removed on 11/08/2016, blood cultures have been obtained. Port tip has been cultured currently afebrile but still complains of chills and hot flashes. Will follow up on blood cultures. Dr. Robert is following. 2. Bronchopneumonia versus pulmonary edema. Will repeat a chest x-ray, does take Lasix at home has not been resumed and he did receive 2 units of blood yesterday could be fluid volume overload. He does have like 4+ edema in his lower extremities. I did not hear any crackles upon auscultation and no wheezing although he complained of wheezing last night he states that once he got into a chair and received oxygen it improved. Last echocardiogram does not show any signs of congestive heart failure. Will go ahead and prophylactically start on Rocephin and will follow Dr. Robert' recommendations on this. 3. Leukemia followed by Dr. Forman. 4. Anemia, received 2 units packed red blood cells yesterday, also had bone marrow biopsy yesterday. 5. Deep venous thrombosis prophylaxis will be SCDs. Dictated by BC Sandy for Quinton Rahman MD Addendum: Patient seen and examined by myself Agree with BC note. It reflects my assessment and plan. Patient was sent to hospital for blood transfusion and he developed fever. Chest X ray revealed pneumonia. We were consulted for medical management. There is also a suspicion for an infected catheter as reason of fever. ID was consulted. Will continue to follow patient in a daily basis. cc: BC Sandy MD Sammy Becdach, MD MTDD
[2016-11-09] MEDS: HUMULIN R SUBQ SCH ×2 (16:33→20:19)
[2016-11-09] MEDS ORDERED: VANCOMYCIN IV PER PHARMACY MISC SCH (17:15)
--- NOTE | 2016-11-09 17:27 | PROGRESS NOTE ---
DATE: 11/09/2016 PRESENT ILLNESS: The patient developed fever and pulmonary infiltrates. These may be due to pneumonia. I am somewhat concerned that the patient may have had a pulmonary emboli even though he told me that the scan on his legs did not show any blood clots. MEDICATIONS: The patient is on Rocephin. PHYSICAL EXAMINATION: Vital Signs: Temperature is 98.1 degrees, pulse 94, respirations 14, blood pressure 144/74. General: This is a somewhat ill-appearing and dyspneic middle-aged male. Lungs: Clear to auscultation. Cardiovascular: Heart rate was regular. Abdomen: Soft and nontender. Extremities: Legs, bilateral edema. LABORATORY AND X-RAY: Chest x-ray shows bilateral infiltrates. CBC shows a white count of 6910, hemoglobin 7.9 and platelet count 308,000. Creatinine is 1.4. ASSESSMENT AND PLAN: 1. I have discontinued Rocephin and placed the patient on a combination of vancomycin and cefepime. Also, I have ordered a ventilation-perfusion lung scan, CBC and a BMP for tomorrow. 2. Comorbidities: He has acute leukemia. He has received chemotherapy for it. The patient also has diabetes mellitus and gastroesophageal reflux disease. cc: MD Jesse Bonilla MD
[2016-11-09] MEDS: MAXIPIME 2 GM in NS 100 ML IV SCH (18:57)
[2016-11-09] MEDS ORDERED: VANCOMYCIN 2,000 MG in NS 500 ML IV ONE (20:00)
[2016-11-09] MEDS: PRILOSEC PO SCH (20:18)
[2016-11-09] MEDS: CULTURELLE PO SCH (20:18)
[2016-11-09] MEDS: PATIENT'S OWN MED PO SCH (22:40)
[2016-11-10] MEDS: MAXIPIME 2 GM in NS 100 ML IV SCH ×2 (05:07→18:11)
[2016-11-10] MEDS: HUMULIN R SUBQ SCH ×4 (05:59→21:34)
[2016-11-10 06:33] LABS: MANUAL DIFF NEEDED? NO
--- NOTE | 2016-11-10 06:37 | EKG Report ---
Test Performed on : 11/10/2016 06:04:44 AM Test Reason : chest pain Blood Pressure : / mmHG Vent. Rate : 095 BPM Atrial Rate : 095 BPM P-R Int : 174 ms QRS Dur : 076 ms QT Int : 344 ms P-R-T Axes : 070 061 019 degrees QTc Int : 432 ms Normal sinus rhythm. Possible Left atrial enlargement Borderline ECG When compared with ECG of 18-OCT-2016 06:53, premature ventricular complexes. are no longer present Confirmed by Beto Yuen MD ([id number]) on 11/10/2016 8:29:25 PM
[2016-11-10 06:40] LABS: BASO% 1.3 % (0.0-0.8); EOS# 0.05 X1000 (0.0-0.7); EOS% 0.6 % (0.0-10.0); HEMATOCRIT 28.8 % (42.0-52.0); HEMOGLOBIN 9.5 g/dL (14.0-18.0); IMM GRAN# 0.02 X1000 (0.0-0.04); IMM GRAN% 0.2 % (0.0-0.5); LYMPH# 0.98 X1000 (1.2-3.4); LYMPH% 11.8 % (20.5-51.1); MCH 30.2 PG (27-31); MCV 91.4 FL (81-99); MONO# 0.46 X1000 (0.11-0.59); MONO% 5.5 % (1.7-9.3); MPV 10.1 FL (7.4-10.4); NEUT% 80.6 % (42.2-75.2); PLT 285 X1000 (130-400); RBC 3.15 XMIL (4.7-6.1)
[2016-11-10 07:00] LABS: INR 1.16; PROTIME 12.3 Seconds (9.2-11.7); PTT 29.9 Seconds (22.0-36.0)
[2016-11-10] MEDS: XOPENEX NEB INH SCH ×3 (07:18→23:12)
[2016-11-10] MEDS: ATROVENT NEB INH SCH ×3 (07:18→23:12)
[2016-11-10 07:23] LABS: AGAP 12; BUN 23 mg/dL (8-22); CHLORIDE 102 mmol/L (98-107); COSMO 283; POTASSIUM 3.6 mmol/L (3.5-5.1); SODIUM 140 mmol/L (136-145); TCO2 26 mmol/L (25-35)
[2016-11-10 07:24] LABS: ALBUMIN 2.6 g/dL (3.5-5.0); ALKALINE PHOSPHATASE 180 U/L (32-122); GOT 16 U/L (10-34); GPT < 5 U/L (10-44); TOTAL BILIRUBIN 0.37 mg/dL (0.20-1.00); TOTAL PROTEIN 6.3 g/dL (6.3-8.3)
[2016-11-10 07:29] LABS: CALCIUM 6.9 mg/dL (8.8-10.2)
--- NOTE | 2016-11-10 09:09 | Diag Imaging Result Doc PS360 ---
EXAM: LUNG SCAN / VQ HISTORY: pulmonary emboli TECHNIQUE: Ventilation/perfusion lung scan, 37.2 mCi of technetium 99m DTPA aerosol for the ventilation portion and 5.8 mCi of technetium 99m MAA intravenously for the perfusion portion. COMMENT: There are some areas in the lung bases which demonstrate better perfusion activity in and ventilation. There is no evidence of a focal absolute perfusion defect. IMPRESSION: Low probability for pulmonary embolus. Electronically signed by Isidoro Baltazar 11/10/2016 9:06 AM
[2016-11-10] MEDS: PATIENT'S OWN MED PO SCH ×2 (09:55→23:27)
[2016-11-10] MEDS: CULTURELLE PO SCH ×2 (09:55→20:49)
[2016-11-10] MEDS: PRILOSEC PO SCH ×2 (09:55→20:49)
[2016-11-10 10:31] LABS: URINE CULTURE NEEDED? NO; URINE MICRO REVIEW NEEDED? NO; URINE SOURCE CLEAN CATCH
[2016-11-10 10:34] LABS: BILIRUBIN URINE NEGATIVE (NEGATIVE); BLOOD URINE SMALL (NEGATIVE); COLOR YELLOW; GLUCOSE URINE NEGATIVE (NEGATIVE); LEUKOCYTES URINE NEGATIVE (NEGATIVE); NITRITE URINE NEGATIVE (NEGATIVE); PH URINE 6.5; PROTEIN URINE >600 mg/dL (NEGATIVE); SP GRAVITY URINE 1.013; TURBIDITY URINE CLEAR (CLEAR); UROBILINOGEN URINE NORMAL (NORMAL)
[2016-11-10 10:35] LABS: UR EPITHELIAL CELLS <10 /HPF (<10); URINE BACTERIA NEGATIVE /HPF; URINE RBC <10 /HPF (<10); URINE WBC <10 /HPF (<10)
[2016-11-10] MEDS ORDERED: MAGNESIUM SULFATE 2 GM/S.W.I. 2 GM/50 ML IVPB IV ONE (11:59)
[2016-11-10] MEDS ORDERED: CALCIUM GLUCONATE 2 GM in NS 100 ML IV ONE (13:00)
--- NOTE | 2016-11-10 13:09 | Extremity Venous Study ---
PROCEDURE NAME: Venous U/S Bilateral Legs - 11/09/2016 REQUESTING PHYSICIAN: Dr. Ellis. WHEELABRATOR OPERATOR: Salvador. INDICATIONS: Edema in legs. PROCEDURE: Bilateral lower extremity venous duplex and color flow imaging. EQUIPMENT: Room 21 Mediaid E 9 ultrasound system with a 9 LD transducer. FINDINGS: Images of bilateral lower extremity venous systems were obtained in both sagittal and transverse planes. Doppler was used to evaluate veins for spontaneity, phasicity, respiratory excursion, and digital augmentation. RESULTS: Reflux noted in the right common femoral vein and right greater saphenous vein, but otherwise normal venous compression, normal venous flow. No obvious superficial or deep venous thrombosis noted. INTERPRETATION: Reflux noted in the right common femoral and greater saphenous vein. Given this, I would recommend a dedicated reflux study on this patient. cc: MD Janette Chester CRNP Sammy Becdach, MD
[2016-11-10] MEDS ORDERED: ROCEPHIN 1 GM in NS 50 ML IV SCH (13:45)
--- NOTE | 2016-11-10 14:51 | PROGRESS NOTE ---
DATE: 11/10/2016 SUBJECTIVE: Patient reports feeling fine. Denies any fever or chills. No, nausea or vomiting. OBJECTIVE: Vital signs: Temperature 97.9 degrees, heart rate 95, respiratory rate 19, blood pressure 163/78, O2 saturation 98% 3 L nasal cannula. General: This is a 56-year-old male, lying in bed, in no acute distress. HEENT: Head is normocephalic, atraumatic. Anicteric sclerae and pale conjunctivae. Neck: Supple. No JVD noted. No carotid bruits. Cardiovascular: S1, S2 heard. No murmurs, gallops, or rubs. Regular rate and rhythm. Respiratory: Clear bilaterally to auscultation. No work of breathing or using accessory muscles. Abdomen: Soft, nontender to palpation. Bowel sounds present. No organomegaly. Extremities: 4+ lower extremity edema. Peripheral pulses present in both legs. Neurological: Patient alert oriented x3. Moves 4 extremities. LABORATORY DATA: White cell count 8. , hemoglobin 9.5, hematocrit 28.8, platelets 285,000 with BMP today shows creatinine 1.5 and calcium 6.9, magnesium 1. ASSESSMENT AND PLAN: 1. Bronchopneumonia. At this point, the patient has been started on antibiotics, in this case ceftriaxone because chest x-ray reported bronchopneumonia versus pulmonary edema. Could be this imaging secondary to volume overload because of 2 units of blood that this patient received yesterday. At this point, we prefer to restart Lasix [address] Robert from Infectious Disease has been consulted and he changed the medications to vancomycin and cefepime. The x-ray from today shows a good physical examination. At this point, we will continue following recommendations from Dr. Robert. 2. Possible infection of the tip of the catheter. The patient has been evaluated by Dr. Robert and he has ordered to remove the left internal jugular catheter and today culture showed gram- positive cocci. The patient is on vancomycin and Cefepime as directed by Dr. Robert. We will continue with the same management. We will follow the results of the cultures. 3. Leukemia. Dr. Forman is following this patient. 4. Anemia of chronic disease. The patient has received 2 units of blood and so far hemoglobin has increased to 9.5. 5. DVT prophylaxis with SCDs. cc: MD Jesse Hall MD
--- NOTE | 2016-11-10 17:37 | PROGRESS NOTE ---
DATE: 11/10/2016 PRESENT ILLNESS: The patient developed bilateral pulmonary infiltrates which I think could be due to pneumonia. There may be an element of pulmonary venous congestion. The patient previously had staph bacteremia which has been treated. MEDICATIONS: The patient is on a combination of vancomycin and cefepime. This is day 1 of treatment with both of those medications. PHYSICAL EXAMINATION: Vital Signs: Temperature is 98.1 degrees, pulse 94, respirations 19, blood pressure 146/70. Generally: Generally this is a somewhat ill-appearing, middle -aged male. He is not dyspneic tonight. Neck: The site where the patient had an internal jugular catheter on the left side is not swollen or tender. Chest: The place where the patient had a right-sided Port- A-Cath also is not swollen or tender. Lungs: Clear to auscultation. Cardiovascular: Regular heart rate. Abdomen: Soft and nontender. LABORATORY AND X-RAY: The patient's CBC today showed a white count of 8300, hemoglobin 9.5, and platelet count 285,000. Creatinine is 1.5. GFR is 59. Alkaline phosphatase is 180. Urine analysis showed no white cells or bacteria. A culture of the internal jugular catheter tip is growing gram positive cocci. Lung scan showed low probability of pulmonary emboli. ASSESSMENT AND PLAN: 1. I plan to continue with cefepime and vancomycin and repeat the chest x-ray tomorrow. The patient has what I think is pneumonia. The patient also has an infected internal jugular vein catheter. 2. Comorbidities include leukemia, chemotherapy, diabetes mellitus and gastroesophageal reflux disease. cc: MD Jesse Bonilla MD MTDD
--- NOTE | 2016-11-10 17:54 | PROGRESS NOTE ---
DATE: 11/10/2016 ADDENDUM: ASSESSMENT AND PLAN: The patient appears to have an infected internal jugular venous catheter, in view of the fact that gram-positive cocci are growing from the catheter tip. The patient's last blood cultures were drawn on November 08, and they showed no growth. cc: MD Jesse Bonilla MD
[2016-11-10] MEDS ORDERED: VANCOMYCIN 1,750 MG in NS 250 ML IV SCH (20:00)
[2016-11-10] MEDS: MARINOL PO SCH (20:49)
[2016-11-10] MEDS: NORVASC PO SCH (20:49)
[2016-11-10] MEDS: ZYLOPRIM PO SCH (20:49)
[2016-11-11] MEDS: MAXIPIME 2 GM in NS 100 ML IV SCH (06:18)
[2016-11-11] MEDS: HUMULIN R SUBQ SCH (06:47)
[2016-11-11] MEDS ORDERED: PROTONIX PO SCH (07:00)
[2016-11-11 07:27] VITALS: BP 164/78
[2016-11-11 07:30] LABS: MANUAL DIFF NEEDED? NO
[2016-11-11 07:35] LABS: BASO% 1.3 % (0.0-0.8); EOS# 0.22 X1000 (0.0-0.7); EOS% 3.3 % (0.0-10.0); HEMATOCRIT 27.9 % (42.0-52.0); IMM GRAN# 0.02 X1000 (0.0-0.04); IMM GRAN% 0.3 % (0.0-0.5); LYMPH# 0.85 X1000 (1.2-3.4); LYMPH% 12.6 % (20.5-51.1); MCH 29.7 PG (27-31); MCHC 32.3 g/dL (33-37); MCV 92.1 FL (81-99); MONO# 0.51 X1000 (0.11-0.59); MONO% 7.5 % (1.7-9.3); MPV 10.3 FL (7.4-10.4); PLT 283 X1000 (130-400); RBC 3.03 XMIL (4.7-6.1)
[2016-11-11 08:14] LABS: CALCIUM 7.1 mg/dL (8.8-10.2); MAGNESIUM 1.3 mg/dL (1.5-2.7); POTASSIUM 3.6 mmol/L (3.5-5.1)
[2016-11-11] MEDS: ATROVENT NEB INH SCH ×2 (08:37→15:19)
[2016-11-11] MEDS: XOPENEX NEB INH SCH ×2 (08:38→15:20)
--- NOTE | 2016-11-11 08:42 | Diag Imaging Result Doc PS360 ---
CHEST-2 VIEWS - 11/11/2016 INDICATION: pneumonia TECHNIQUE: COMPARISON: 11/09/2016 FINDINGS: Stable cardiomegaly and pulmonary vascular congestion. There are essentially stable trace pleural effusions. Stable faint bilateral lower lobe predominantly interstitial infiltrates, nonspecific but suggestive of pulmonary edema. IMPRESSION: No significant change from prior. Electronically signed by Les Jean 11/11/2016 8:40 AM
[2016-11-11] MEDS ORDERED: MIRALAX PO SCH (09:00)
[2016-11-11] MEDS ORDERED: LASIX PO SCH (09:00)
[2016-11-11] MEDS ORDERED: KLOR-CON PO SCH (09:00)
[2016-11-11] MEDS: PRILOSEC PO SCH (09:44)
[2016-11-11] MEDS: PATIENT'S OWN MED PO SCH (09:44)
[2016-11-11] MEDS: MARINOL PO SCH (09:45)
[2016-11-11] MEDS: CULTURELLE PO SCH (09:45)
[2016-11-11] MEDS: ZYLOPRIM PO SCH (09:45)
[2016-11-11] MEDS: NORVASC PO SCH (09:45)
--- NOTE | 2016-11-11 15:30 | PROGRESS NOTE ---
DATE: 11/11/2016 PRESENT ILLNESS: The patient has bilateral pulmonary infiltrates. I think most likely these are due to pulmonary venous congestion rather than pneumonia. The patient is not having any fever. He is not coughing. He does not look toxic, and his white count is not elevated. The patient did have an infected internal jugular vein catheter. This has been removed. MEDICATIONS: Currently, the patient is on vancomycin and cefepime. PHYSICAL EXAMINATION: Vital Signs: Temperature is 97.7 degrees, pulse 79, respirations 19, blood pressure 164/78. General: This is a somewhat ill-appearing, middle-aged male. He is not dyspneic. He is not coughing. He is not having a high spiking fever or shaking chills. Lungs: Clear to auscultation. Cardiovascular: Heart rate is regular. Neck: The site where the internal jugular venous catheter was is not swollen or tender. Chest: The patient had a prior Port-A-Cath on the right side. That site also is not swollen or tender. Abdomen: Soft and nontender. LABORATORY AND X-RAY: CBC for today shows a white count of 6760, hemoglobin 9, platelet count 283,000. Creatinine is 1.5. GFR is 59. Blood cultures are negative. Chest x-ray, I think, now is more likely to be due to pulmonary edema, rather than infection. ASSESSMENT AND PLAN: I think the patient can be discharged today. I do not think he needs any further antibiotics. The patient's comorbidities include: 1. Leukemia. 2. Chemotherapy. 3. Diabetes mellitus. 4. Gastroesophageal reflux disease. cc: MD Jesse Bonilla MD
--- NOTE | 2016-11-12 09:33 | DISCHARGE SUMMARY ---
ADMISSION DATE: 11/08/2016 DISCHARGE DATE: 11/11/2016 CONSULTATIONS: 1. Dr. Devan Robert with Infectious Disease. 2. Dr. Forman with Hematology. PERTINENT PROCEDURES: 1. Bone marrow aspiration. 2. Chest x-ray showed bronchial pneumonia and/or pulmonary edema. 3. Venous Dopplers showed reflux noted in the right common femoral and greater saphenous vein. 4. V/Q scan showed low probability for PE. 5. Followup chest x-ray on 11/11/2016 showed trace pleural effusions, stable faint bilateral lower lobe predominantly interstitial infiltrate, nonspecific but suggestive of pulmonary edema. DISCHARGE DIAGNOSES: 1. Bronchopneumonia versus pulmonary edema. The patient was initiated on antibiotics. However, it has been ruled out. Dr. Robert was on board. His antibiotics have been stopped. 2. Pulmonary edema. The patient was given intravenous Lasix and breathing treatments. He had volume overload secondary to 2 units of blood that the patient received on , and he will continue his home Lasix. 3. Possible infection of the tip of his port. Port was removed on 11/08/2016. They cultured the tip, and it grew out Staphylococcus epidermidis. His blood cultures have been negative. Dr. Robert has stopped his antibiotics. 4. Leukemia, status post bone marrow biopsy. Will follow up with Dr. Forman in the morning. 5. Anemia, status post 2 units of packed red blood cells, now stable. 6. Recent bacteremia with oxacillin-sensitive Staphylococcus aureus, was positive back on 10/19/2016. Again, Dr. Robert was consulted. Initially started on antibiotics. All cultures have been negative. His port was discontinued on 11/08/2016. Tip was cultured and grew out Staphylococcus epidermidis. Antibiotics have been discontinued. HOSPITAL COURSE: Briefly, Mr. Kim is a 56-year-old male who has a diagnosis of leukemia, was admitted on 11/08/2016 to have a bone marrow biopsy and 2 units of PRBCs. His port was removed secondary to bacteremia. Later in the evening, he developed some wheezing and some shortness of breath, which improved when he got up to the chair and received oxygen therapy. Chest x-ray obtained revealed that he had bronchopneumonia and/or pulmonary edema. He was saturating 93% to 99% on 3 L nasal cannula. His wheezing subsided. Dr. Robert was following his bacteremia. He was on antibiotics, and received a full course, which ended this past Tuesday. Rocephin was added, respiratory treatments, and reconsulted Dr. Robert for his fluid volume overload secondary to the 2 units of PRBCs and his significant lower extremity edema that was 4+. He was discontinued on his p.o. Lasix. V/Q scan did not show any PE. His followup chest x-ray showed predominantly interstitial infiltrates nonspecific, but suggestive of pulmonary edema. Dr. Forman as well felt like this was due to pulmonary venous congestion rather than pneumonia. He has not had any fever, no coughing, his white count is not elevated. He did have an infected IJ vein catheter that had been previously removed, and Dr. Robert along with Dr. Forman felt that he did not need any further antibiotics and that he could be discharged home today to follow up with Dr. Forman in the a.m. DISCHARGE VITAL SIGNS: Temperature was 97.7 degrees, heart rate 101, respirations 18, blood pressure 164/78, O2 is 97%. DISCHARGE DIET: Diabetic. DISCHARGE MEDICATIONS: 1. Zyloprim 100 mg p.o. b.i.d. 2. Norvasc 5 mg p.o. b.i.d. 3. Marinol 2.5 mg p.o. b.i.d. 4. Lasix 40 mg p.o. daily. 5. Culturelle 1 cap p.o. b.i.d. 6. Glucophage XR 750 p.o. daily. 7. Protonix 40 mg p.o. daily. 8. MiraLAX 17 grams p.o. daily. 9. Klor-Con 20 mEq p.o. daily. 10. Phenergan 25 mg p.o. every 4 to 6 hours p.r.n. 11. Tretinoin 50 mg p.o. b.i.d. FOLLOWUP: Mr. Kim is being discharged home with his and his previous home health services with [facility]. He is to follow up with Dr. Forman in the a.m., as well as Dr. Robert as instructed. He can return to the ED for any worsening of symptoms. DISCHARGE TIME: 30 minutes. Dictated by BC Denis for Quinton Rahman MD Addendum: Patient seen and examined by myself. Agree with BC note. It reflects my assessment and plan. Patient was admitted to hospital because he developed fever after the transfusion and chest x ray revealed initially possible pneumonia. Dr. Robert from [place] was consulted and removed a line patient had and it did grow Staph epidermidis which was considered a contaminant. Also chest x ray from discharge suggested more mild pulmonary edema than pneumonia. Dr. Robert agree to send this patient home with no antibiotics and follow up with Dr. Forman in a week. Patient being discharged in stable condition. cc: MD Jesse Hall MD Johnna Langford, BC [facility]ITAL[facility]rist[facility]
== END 2016-11-11 16:19 | disposition home health service (06) ==
LOC: SURHOLD 09:25 → OBSVTOIN 09:25 → SUATTDRO 09:25 → INTOOBSV 09:25 → EDSTATUS 10:00 → 3N 13:37
PROVIDERS: ADMIT Internal Medicine Hematology & Oncology; ATTEND Internal Medicine